=== PATIENT | female | born 1990 | race Caucasian/White ===

== ENCOUNTER 2016-05-27 02:15 | Inpatient (IN) | payer OTHER ==
[2016-05-27] MEDS: DEXTROSE 5%-LACTATED RINGERS 1,000 ML IV SCH ×2 (03:30→08:34)
[2016-05-27 04:39] LABS: BASOPHIL 0.8 % (0-2.0); EOSINOPHIL 0.4 % (0-4.5); MCH 29.6 pg (25.7-33.7); MCHC 34.6 g/dl (32.0-36.0); MEAN CELL VOLUME 85.8 fl (80-96); MEAN PLT VOLUME 9.1 fl (7.5-11.1); NEUTROPHILS 72.1 % (42.8-82.8); PLATELET COUNT 261 K/MM3 (134-434); RDW 13.2 % (11.6-15.6); WHITE BLOOD COUNT 10.3 K/mm3 (4.0-10.0)
[2016-05-27 04:58] LABS: INR 0.97 (0.82-1.09); PROTHROMBIN TIME (PATIENT) 10.7 SEC (9.98-11.88)
[2016-05-27 05:00] VITALS: BMI 37.3
[2016-05-27 05:01] LABS: ACTIVATED PTT 27.8 SECONDS (26.9-34.4)
[2016-05-27 05:04] LABS: CALCIUM 8.5 mg/dL (8.5-10.1); CREATININE 0.4 mg/dL (0.55-1.02)
[2016-05-27 05:22] LABS: HIV 1 & 2 AB NEGATIVE; HIV 1 AGp24 NEGATIVE
[2016-05-27] MEDS ORDERED: DINOPROSTONE 10 MG VAGINAL SUPPOSITORY VG ONE (05:26)
[2016-05-27] MEDS ORDERED: AMPICILLIN - 100 ML IVPB ONE (06:44)
--- NOTE | 2016-05-27 06:50 | HP ---
Past Medical History - Primary Care Physician PCP:: Chrystal Chapman - Admission Chief Complaint: Postdates History of Present Illness: 25 yo EDc 05/22/16 EGA 40.6 weeks with c/o of mucous and mild cramping no rom bleeding DIAMOND or pain pt admitted for postdates pt with Ho delivery at 35 weeks History Source: Patient - Past Medical History ...: 2 ...Para: 1 ...Term: 0 ...: 1 ...Spon : 0 ...Induced : 0 ...Multiple Gestation: 0 ...EDC by Sono: 05/22/15 Additional OB History: delivery at 35 weeks - Past Surgical History Past Surgical History: Yes: None Hx Myomectomy: No Hx Transabdominal Cerclage: No - Smoking History Smoking history: Never smoked Have you smoked in the past 12 months: No Aproximately how many cigarettes per day: 0 - Alcohol/Substance Use Hx Alcohol Use: No History of Substance Use: reports: None - Social History History of Recent Travel: No Home Medications - Allergies Allergies/Adverse Reactions: Allergies Allergy/AdvReac Type Severity Reaction Status Date / Time No Known Allergies Allergy Verified 05/27/16 03:46 - Home Medications Home Medications: Ambulatory Orders Vit/Iron Fumarate/FA [ Tablet] 1 each PO DAILY 01/03/16 Review of Systems - Review of Systems Constitutional: reports: No Symptoms Eyes: reports: No Symptoms HENT: reports: No Symptoms Neck: reports: No Symptoms Cardiovascular: reports: No Symptoms Respiratory: reports: No Symptoms Gastrointestinal: reports: No Symptoms Genitourinary: reports: No Symptoms Breasts: reports: No Symptoms Reported Musculoskeletal: reports: No Symptoms Integumentary: reports: No Symptoms Neurological: reports: No Symptoms Endocrine: reports: No Symptoms Hematology/Lymphatic: reports: No Symptoms Psychiatric: reports: No Symptoms Physical Exam - Maternity Vital Signs: Vital Signs Temperature 97.7 F 05/27/16 06:00 Pulse Rate 90 05/27/16 06:00 Respiratory Rate 20 05/27/16 06:00 Blood Pressure 126/78 05/27/16 06:00 O2 Sat by Pulse Oximetry (%) Constitutional: Yes: Well Nourished Neck: Yes: WNL Cardiovascular: Yes: WNL, Regular Rate and Rhythm Lungs: Clear to auscultation Breast(s): Yes: WNL - Abdominal Exam/OB Fundal Height: 41 Number of Fetuses: Single Contractions: No Monitor Mode: External Heart Rate (range): 140 Heart Rate Location: [facility] Category: I Accelerations: Non-Uniform Decelerations: None - Vaginal Exam/OB Vaginal Bleediing: No Speculum Exam: No Dilatation (cm): 3 cm Effacement (%): 80 Amniotic Membrane Status: Intact Presentation: Vertex/Position Station: -2 - Physical Exam Musculoskeletal: Yes: WNL Extremities: Yes: WNL Edema: No Integumentary: Yes: WNL Psychiatric: Yes: WNL, Alert, Oriented - Labs Lab Results: CBC, BMP 05/27/16 04:25 05/27/16 04:25 Hemorrhage Risk Assessment - Risk Factors Risk Score: 0 Risk Level: Low Risk Problem List - Problems (1) Post term over 40 weeks Code(s): O48.0 - POST-TERM Assessment/Plan iup at 40.5 weeks by usg admitted for induction of labor Hx of delivery at 35 weeks Cat 1 Plan cervidil then pitocin if needed
[2016-05-27] MEDS ORDERED: BUTORPHANOL TARTRATE 1 MG/ML VIAL IVPB ONE (08:00)
[2016-05-27] MEDS ORDERED: PROMETHAZINE HCL 25 MG/1 ML VIAL IVPB ONE (08:00)
[2016-05-27] MEDS ORDERED: ELECTROLYTE-148 SOLN 1,000 ML IV SCH (09:00)
[2016-05-27] MEDS ORDERED: FENTANYL/BUPIVACAINE/NS/PF - PCEA - 50 ML DISP.SYRIN EP SCH (09:40)
[2016-05-27] MEDS ORDERED: WITCH HAZEL 50% (TUCKS) 40 PAD/JAR PAD TP PRN (10:37)
[2016-05-27] MEDS ORDERED: IBUPROFEN 800 MG/8 ML IJ IVPB PRN (10:37)
[2016-05-27] MEDS ORDERED: BENZOCAINE 20% 57 GM BOTTLE TP PRN (10:37)
[2016-05-27] MEDS ORDERED: BENZOCAINE 28 GM HEMORRHOIDAL OINTMENT TP PRN (10:37)
[2016-05-27] MEDS ORDERED: METHYLERGONOVINE MALEATE 0.2 MG/1 ML AMP IM PRN (10:37)
--- NOTE | 2016-05-27 10:41 | OP ---
[id number] Distress. bradycardia Operation: Primary Section Findings: Live male normal tubes & ovaries Post-Operative Diagnosis: Same as Pre-op Surgeon: Chrystal Chapman Electromechanical Assembly Technician: Gopi Ward Anesthesia: General Estimated Blood Loss (mls): 600 Operative Report Dictated: Yes
[2016-05-27] MEDS ORDERED: ONDANSETRON 4 MG/2 ML VIAL IVPB PRN (10:56)
[2016-05-27] MEDS ORDERED: LACTATED RINGERS SOLUTION 1,000 ML IV SCH (11:00)
[2016-05-27 11:02] LABS: ARTERIAL BLOOD GAS pH 7.05 (7.35-7.45)
[2016-05-27 11:03] LABS: ARTERIAL BLD GAS O2 SATURATION 2.3 % (90-98.9); ARTERIAL BLOOD GAS BASE EXCESS -10.7 meq/l (-2-2); ARTERIAL BLOOD GAS HCO3 23.6 meq/L (22-26); ARTERIAL BLOOD GAS PO2 4.3 mmHg (80-100)
[2016-05-27 11:04] LABS: ART PUNCT SITE OTHER; LPM/O2% 21%; PT. ON O2? n
[2016-05-27 11:06] LABS: ARTERIAL BLD GAS O2 SATURATION 4.4 % (90-98.9); ARTERIAL BLOOD GAS BASE EXCESS -10.7 meq/l (-2-2); ARTERIAL BLOOD GAS HCO3 23.7 meq/L (22-26); ARTERIAL BLOOD GAS PO2 5.7 mmHg (80-100); ARTERIAL BLOOD GAS pH 7.05 (7.35-7.45)
[2016-05-27 11:07] LABS: ART PUNCT SITE OTHER; LPM/O2% 21%; PT. ON O2? n; TYPE OF O2 r/a
[2016-05-27 11:09] LABS: ARTERIAL BLOOD GAS pH 7.08 (7.35-7.45)
[2016-05-27 11:10] LABS: ART PUNCT SITE OTHER; ARTERIAL BLD GAS O2 SATURATION 5.3 % (90-98.9); ARTERIAL BLOOD GAS BASE EXCESS -9.1 meq/l (-2-2); ARTERIAL BLOOD GAS PO2 10.2 mmHg (80-100); LPM/O2% 21%; PT. ON O2? n; TYPE OF O2 r/a
[2016-05-27 11:12] LABS: ARTERIAL BLD GAS O2 SATURATION 5.4 % (90-98.9); ARTERIAL BLOOD GAS BASE EXCESS -9.2 meq/l (-2-2); ARTERIAL BLOOD GAS PO2 10.2 mmHg (80-100); ARTERIAL BLOOD GAS pH 7.08 (7.35-7.45)
[2016-05-27 11:13] LABS: ART PUNCT SITE OTHER; ARTERIAL BLOOD GAS HCO3 23.9 meq/L (22-26); LPM/O2% 21%; PT. ON O2? n; TYPE OF O2 r/a
[2016-05-27] MEDS: AMPICILLIN - 100 ML IVPB SCH ×3 (12:09→19:26)
--- NOTE | 2016-05-27 15:57 | SURG ---
Surgery Web Services Architect Note Web Services Architect: Gopi Ward PA-C Date of Service: 05/27/16 Diagnosis: Distress. bradycardia Procedure: Primary Section I was present for the entirety of the operative procedure. For further detail, please refer to operative report. Visit type - Case Type Case Type: Scheduled Admission - New patient This patient is new to me today: Yes Date on this admission: 05/27/16
--- NOTE | 2016-05-28 06:43 | PN ---
Post Progress Note - Subjective Subjective: 25 yo Para 2, status post primary , seen and evaluated. Doing well. Post Day: 1 Type of Delivery: Primary C/S Vital Signs: Vital Signs Temperature 98.6 F 05/28/16 02:00 Pulse Rate 88 05/28/16 02:00 Respiratory Rate 18 05/28/16 05:00 Blood Pressure 106/58 05/28/16 02:00 O2 Sat by Pulse Oximetry (%) 100 05/27/16 13:00 Breast Exam: Yes: Soft Uterus: Yes: Fundus Firm Incision: Yes: Dressing dry and intact Abdomen/GI: Yes: Abdomen soft Lochia: Yes: Rubra Lochia, amount: Small Extremities: Yes: Calves non-tender Perineum: Yes: Intact Activity: Other (Lying in bed) - Labs Labs: CBC WBC 10.3 K/mm3 (4.0-10.0) H 05/27/16 04:25 RBC 4.16 M/mm3 (3.60-5.2) 05/27/16 04:25 Hgb 12.3 GM/dL (10.7-15.3) 05/27/16 04:25 Hct 35.6 % (32.4-45.2) 05/27/16 04:25 MCV 85.8 fl (80-96) 05/27/16 04:25 MCHC 34.6 g/dl (32.0-36.0) 05/27/16 04:25 RDW 13.2 % (11.6-15.6) 05/27/16 04:25 Plt Count 261 K/MM3 (134-434) 05/27/16 04:25 MPV 9.1 fl (7.5-11.1) 05/27/16 04:25 Neutrophils % 72.1 % (42.8-82.8) 05/27/16 04:25 Lymphocytes % 21.5 % (8-40) 05/27/16 04:25 Monocytes % 5.2 % (3.8-10.2) 05/27/16 04:25 Eosinophils % 0.4 % (0-4.5) 05/27/16 04:25 Basophils % 0.8 % (0-2.0) 05/27/16 04:25 Problem List - Problems (1) Status post primary low transverse section Code(s): Z98.89 - OTHER SPECIFIED POSTPROCEDURAL STATES * DO NOT USE * Assessment/Plan Status post primary Ambulation Anesthesia PRN pain Continue Post op care
--- NOTE | 2016-05-28 07:55 | PN ---
Progress Note (short form) - Note Progress Note: Post op day#1.S/P C section under spinal anesthesia with duramorph uneventful.Patient stable and does not c/o pain.No any anesthesia related problem.Patient DC from the anesthesia care.
[2016-05-28 08:50] LABS: BASOPHIL 1.3 % (0-2.0); EOSINOPHIL 0.1 % (0-4.5); MCH 29.2 pg (25.7-33.7); MCHC 33.8 g/dl (32.0-36.0); MEAN CELL VOLUME 86.5 fl (80-96); MEAN PLT VOLUME 8.5 fl (7.5-11.1); NEUTROPHILS 80.3 % (42.8-82.8); PLATELET COUNT 225 K/MM3 (134-434); RDW 13.1 % (11.6-15.6); WHITE BLOOD COUNT 12.2 K/mm3 (4.0-10.0)
[2016-05-28] MEDS: IBUPROFEN 600 MG TABLET (FP) PO PRN ×3 (10:27→21:06)
[2016-05-28] MEDS: SIMETHICONE 80 MG TAB.CHEW (FP) PO PRN ×3 (10:27→21:05)
[2016-05-28] MEDS ORDERED: BISACODYL 10 MG SUPP.RECT RC PRN (10:38)
[2016-05-28] MEDS: PRENATAL VITAMINS W/ FOLIC ACID TABLET (FP) PO SCH (12:11)
[2016-05-28] MEDS ORDERED: OXYCODONE/APAP 5/325MG COMBO TABLET PO PRN (12:18)
[2016-05-28] MEDS ORDERED: oxyCODONE HCL 5 MG TABLET PO PRN (12:25)
[2016-05-28] MEDS ORDERED: ACETAMINOPHEN 325 MG TABLET (FP) PO PRN (12:25)
[2016-05-28] MEDS: ACETAMINOPHEN 325 MG TABLET (FP) PO PRN ×2 (14:28→21:05)
[2016-05-29] MEDS: oxyCODONE HCL 5 MG TABLET PO PRN ×3 (00:13→11:55)
[2016-05-29] MEDS: SIMETHICONE 80 MG TAB.CHEW (FP) PO PRN ×4 (00:13→18:28)
[2016-05-29] MEDS: ACETAMINOPHEN 325 MG TABLET (FP) PO PRN ×4 (00:14→18:26)
[2016-05-29] MEDS: PRENATAL VITAMINS W/ FOLIC ACID TABLET (FP) PO SCH (09:59)
[2016-05-29] MEDS: IBUPROFEN 600 MG TABLET (FP) PO PRN (18:28)
[2016-05-30] MEDS: SIMETHICONE 80 MG TAB.CHEW (FP) PO PRN (00:42)
[2016-05-30] MEDS: IBUPROFEN 600 MG TABLET (FP) PO PRN (00:42)
[2016-05-30] MEDS: ACETAMINOPHEN 325 MG TABLET (FP) PO PRN (00:43)
--- NOTE | 2016-05-30 06:56 | DS ---
Physical Exam-HAIR DESIGNER Vital Signs: Vital Signs Temperature 98.8 F 05/29/16 22:00 Pulse Rate 117 H 05/29/16 22:00 Respiratory Rate 18 05/29/16 22:00 Blood Pressure 128/68 05/29/16 22:00 O2 Sat by Pulse Oximetry (%) 100 05/27/16 13:00 Constitutional: Yes: Well Nourished, No Distress, Calm Eyes: Yes: Conjunctiva Clear, EOM Intact HENT: Yes: Atraumatic, Normocephalic Neck: Yes: Supple, Trachea Midline Cardiovascular: Yes: Regular Rate and Rhythm Respiratory: Yes: Regular, CTA Bilaterally Gastrointestinal: Yes: Normal Bowel Sounds, Soft ....Post : Yes: Uterus firm, Uterus non-tender Breast(s): Yes: WNL Musculoskeletal: Yes: WNL Wound/Incision: Yes: Clean/Dry, Well Approximated Neurological: Yes: Alert, Oriented Psychiatric: Yes: Alert, Oriented Labs: CBC, BMP 05/28/16 08:00 05/27/16 04:25 Delivery - Delivery Type of Anesthesia: Epidural, General Episiotomy/Laceration: None EBL (cc): 600 Delivery, Single - Stages of Labor Date 1st Stage Initiatied: 05/27/16 Date of Delivery: 05/27/16 Time of Delivery: 10:07 Time Placenta Delivered: 10:08 - Condition of Infant Lodge Officer/Commissions Coordinator Present: Yes Name: Keily Franco Infant Gender: Male Weight: 7 lb 9 oz Position: OT Total Hours ROM (Hrs/Mins): 0/16 - 1 Minute Total Score: 3 5 Minutes Total Score: 7 - [place] Feeding Plan Initial Plan: Elected not to breastfeed exclusively throughout hospitalization Discharge Summary Reason For Visit: LABOR ADMIT Current Active Problems Post term over 40 weeks (Acute) Status post primary low transverse section (Acute) Procedures: Principal: Primary section Hospital Course: Patient admitted for induction of labor on 05/27, underwent emergency section (see operative report) for bradycardia. Patient then underwent normal post recovery and is discharged home in stable condition on post op day 3. Condition: Good - Instructions Diet, Activity, Other Instructions: Physical activity Resume your normal everyday activity as tolerated no heavy lifting or exercise until seen by your surgeon. You may walk unlimited jevon of and climb stairs. You may resume driving the car when you feel safe and comfortable behind the wheel. No sexual activity as instructed. Wound care If you have a bandage, leave it on, and keep dry for 48-72 hours. After that time discard the outer bandage. If they are tapes on the skin under the out of bandage leave them in place. They will peel off in the next 7 to 10 days. Do Not Peel them off. You may shower the day after surgery. If there are tapes present on the skin, you may shower over them. Diet There are no dietary restrictions. Eat healthy, high-fiber foods. Drink 6 to 8 glasses of liquid each day. This will assist in keeping your bowels are regular. Pain management You may take Tylenol or acetaminophen or Ibuprofen (for example, Motrin, Advil etc.) from my pain prescription medication is ordered should be taken as prescribed for moderate to severe pain. Call MD for any of the following: Severe pain not relieved by medication Fever of 101 or higher Excessive bleeding or drainage on dressing Inability to urinate Referrals: Chrystal Chapman MD [Staff Physician] - Disposition: HOME - Home Medications Comprehensive Discharge Medication List: Ambulatory Orders Vit/Iron Fumarate/FA [ Tablet] 1 each PO DAILY 01/03/16 Oxycodone HCl/Acetaminophen [Percocet 5-325 mg Tablet -] 1 tab PO Q4H #20 tablet MDD 6 05/29/16
[2016-05-30 07:07] LABS: BASOPHIL 0.8 % (0-2.0); EOSINOPHIL 1.6 % (0-4.5); MCH 29.8 pg (25.7-33.7); MCHC 34.6 g/dl (32.0-36.0); MEAN PLT VOLUME 8.3 fl (7.5-11.1); NEUTROPHILS 61.6 % (42.8-82.8); PLATELET COUNT 237 K/MM3 (134-434); RDW 13.2 % (11.6-15.6); WHITE BLOOD COUNT 7.6 K/mm3 (4.0-10.0)
[2016-05-30 09:49] VITALS: BP 136/74; PULSE 100; TEMP 98
[2016-05-30] MEDS: PRENATAL VITAMINS W/ FOLIC ACID TABLET (FP) PO SCH (10:08)
--- NOTE | 2016-05-30 14:42 | PATH ---
Surgical Pathology Report Patient Name: KEISHA LUNA Med. Rec. #: [id number] /Age/Gender: 1990 (Age: 25) / F Account: [id number] Location: [facility] OBS/CURRICULUM DESIGNER Taken: 05/27/2016 Received: 05/28/2016 Reported: 05/30/2016 Physicians: Chrystal Chapman M.D. Specimen(s) Received PLACENTA Clinical History , 40.5 weeks, distress/bradycardia Primary c/section Final Diagnosis PLACENTA, DELIVERY: FOCALLY DISRUPTED, SMALL (<400 GM), THIRD TRIMESTER PLACENTA WITH MODERATE INCREASE IN PREVILLOUS, PERIVILLOUS, AND PRECHORIONIC FIBRIN DEPOSITION, DYSTROPHIC CALCIFICATIONS, THREE VESSEL UMBILICAL CORD, AND PLACENTAL MEMBRANES WITH MECONIUM HISTIOCYTOSIS, FOCAL ACUTE CHORIOAMNIONITIS AND AMNION HYPERPLASIA. Electronically Signed Kendall Ludwig M.D. Gross Description The specimen is received fresh, labeled "placenta" and is a 339 gram, 14.0 x 13.5 x 2.0 cm placenta with attached membranes and a small portion of attached umbilical cord. The attached membranes are manuel-green, meconium stained, translucent with focal opacities and insert marginally. The umbilical cord measures 2 cm. in length and averages 1.2 cm in diameter. The cord inserts eccentrically, 2.5 cm to the nearest margin. No true knots or strictures are identified. Cut surface of the umbilical cord reveals 3 vessels. The surface is spence-blue with fibrin deposition and appropriate caliber vessels. The maternal surface is red-brown and intact. Sectioning reveals red-brown, spongy parenchyma. No focal lesions are identified. Optimization Analyst sections are submitted in three cassettes as follows: 1- membrane rolls and umbilical cord; 2-3- full thickness sections of placenta. /05/29/2016 saudi05/29/2016
--- NOTE | 2016-06-02 14:20 | OP ---
DATE OF OPERATION: 05/27/2016 PREOPERATIVE DIAGNOSIS: distress, bradycardia. OPERATION: Primary low-transverse section. POSTOPERATIVE DIAGNOSIS: distress, bradycardia; live male ; normal tubes and ovaries. SURGEON: Chrystal Chapman MD ANESTHESIA: General. ANESTHESIOLOGIST: Jennie Villarreal MD PROCEDURE: The patient was taken to the operating room, placed in supine position, prepped and draped in the usual sterile fashion. After general anesthesia had been given, a Pfannenstiel skin incision was made with a scalpel. Cautery was then used to go through layers of abdominal wall to level of the fascia. Fascia was cut in the midline and cautery was then used to open the fascia in smiling fashion. Kochers were then used to bluntly and sharply dissect the rectus muscle with the fascia. Muscles split in the midline and peritoneal cavity was then entered and carried upward and downward. Bladder retractor was then placed. Vesicouterine reflection was then entered. Bladder was bluntly dissected out of the operative field. Scalpel was then used to make a low transverse uterine incision. The incision was carried up with using bandage scissors. A live male was delivered in OT position. Nose and mouth suction performed. Shoulders were delivered without difficulty. Cord was clamped and cut, cord blood obtained. Again, a live male was delivered in OT position and handed to trading manager. Placenta was manually extracted from the uterus. Uterus exteriorized and cleaned with clean lap pads. Uterine incision then closed using 0 Biosyn suture, 1st layer continuous interlocking, 2nd layer imbricating the 1st layer. Cord blood and cord blood sampling was then obtained. Hemostasis was achieved after imbricating stitch on the uterus. Uterus interiorized. Note tubes were noted to be normal and the ovaries normal. Abdominal sweep done. Peritoneal cavity closed using 0 Biosyn suture. Fascia was then closed using 0 Vicryl suture in 2 parts. Skin was then closed using 3-0 Vicryl in subcuticular fashion. Wound was washed and dressed. Patient tolerated procedure well. Estimated blood loss 600 mL. CHRYSTAL CHAPMAN M.D. [id number]
== END 2016-05-30 12:30 | disposition home or self-care (01) | DRG 540 ==
LOC: JDEL 02:15 → JLDR 03:10 → J3W 13:25
PROVIDERS: ADMIT Obstetrics & Gynecology; ATTEND Obstetrics & Gynecology
PROC: 10D00Z1 Extraction of Products of Conception, Low, Open Approach (ICD-10-PCS; principal; 2016-05-27)
DX: O48.0 Post-term pregnancy (principal); O77.8 Labor and delivery complicated by other evidence of fetal stress; O77.0 Labor and delivery complicated by meconium in amniotic fluid; Z3A.40 40 weeks gestation of pregnancy; Z37.0 Single live birth
CPT/HCPCS: 36415; 36600; 80048; 82803; 85025; 85610; 85730; 86593; 86850; 86900; 86901; 87389; 88307-TC

== ENCOUNTER 2018-07-10 16:01 | Emergency (ER) | payer OTHER ==
[2018-07-10 16:10] VITALS: BP 134/81; PULSE 97; TEMP 98.5; BMI 36.0
--- NOTE | 2018-07-10 16:53 | PDOC ---
History of Present Illness - General Chief Complaint: Pain Stated Complaint: ABD PAIN Time Seen by Provider: 07/10/18 16:25 History Source: Patient - History of Present Illness Timing/Duration: reports: constant Past History - Past Medical History Allergies/Adverse Reactions: Allergies Allergy/AdvReac Type Severity Reaction Status Date / Time No Known Allergies Allergy Verified 07/10/18 16:07 Home Medications: Ambulatory Orders Vit/Iron Fum/Folic AC [ Tablet] 1 each PO DAILY 01/03/16 Asthma: No Cancer: No Cardiac Disorders: No COPD: No CHF: No Diabetes: No HTN: No Seizures: No Thyroid Disease: No - Surgical History Abdominal Surgery: No - Reproductive History Is Patient Now?: (UNK) (#): 2 Para: 2 Cervical CA: No Dysfunctional Uterine Bleeding: No Ectopic : No Endometrial CA: No Polycystic Ovaries: No Therapeutic (s) & number: No Tubal Ligation: No - Immunization History Immunization Up to Date: Yes - Suicide/Smoking/Psychosocial Hx Smoking Status: No Smoking History: Never smoked Have you smoked in the past 12 months: No Number of Cigarettes Smoked Daily: 0 Hx Alcohol Use: No Drug/Substance Use Hx: No Substance Use Type: None Hx Substance Use Treatment: No Review of Systems - Review of Systems Constitutional: No: Chills, Fever ABD/GI: Yes: Abdominal cramping. No: Nausea, Vomiting : No: Dysuria, Flank Pain *Physical Exam - Vital Signs Last Vital Signs Temp Pulse Resp BP Pulse Ox 98.5 F 97 H 17 134/81 98 07/10/18 16:07 07/10/18 16:07 07/10/18 16:07 07/10/18 16:07 07/10/18 16:07 - Physical Exam General Appearance: Yes: Appropriately Dressed. No: Apparent Distress Respiratory/Chest: negative: Respiratory Distress Gastrointestinal/Abdominal: positive: Normal Bowel Sounds, Soft. negative: Tender, Distended, Guarding, Rebound Musculoskeletal: negative: CVA Tenderness Integumentary: positive: Dry, Warm Neurologic: positive: Fully Oriented, Alert, Normal Mood/Affect Medical Decision Making - Medical Decision Making 07/10/18 16:52 27 yo F, , here with intermittent pelvic pain x 1 week which has since resolved. Now feels mostly fatigued and concerned that she may be as her period is 6 days late. Admits that test at home was negative but wants a preg test here. No dysuria, vag discharge, nausea, vomiting, fever or chills See exam R/o Exam unremarkable -upreg 07/10/18 18:23 test neg. Stable for dc w/ early intervention specialist f/u *DC/Admit/Observation/Transfer Diagnosis at time of Disposition: Pelvic pain - Discharge Dispostion Disposition: HOME Condition at time of disposition: Good - Referrals Referrals: Artemio Leblanc MD [Primary Care Provider] - - Patient Instructions Additional Instructions: Your test is negative here Please follow up with your MILK PICKUP DRIVER for irregular period Return to ED as needed - Post Discharge Activity
--- NOTE | 2018-07-10 17:26 | PDOC ---
*Physical Exam - Vital Signs Last Vital Signs Temp Pulse Resp BP Pulse Ox 98.5 F 97 H 17 134/81 98 07/10/18 16:07 07/10/18 16:07 07/10/18 16:07 07/10/18 16:07 07/10/18 16:07 Medical Decision Making - Medical Decision Making 07/10/18 17:26 27 yo F presenting with abdominal pain and dizziness, concerned about Pt seen by Midlevel Provider under my direct supervision Ancillary studies reviewed I agree with plan as outlined by Midlevel Provider *DC/Admit/Observation/Transfer Diagnosis at time of Disposition: Pelvic pain - Discharge Dispostion Disposition: HOME Condition at time of disposition: Good - Referrals Referrals: Artemio Leblanc MD [Primary Care Provider] - - Patient Instructions Additional Instructions: Your test is negative here Please follow up with your DRAW FRAME OPERATOR for irregular period Return to ED as needed - Post Discharge Activity
[2018-07-10 18:32] LABS: PH,URINE 6.5 (5.0-8.0); URINE APPEARANCE CLEAR; URINE BILIRUBIN NEGATIVE (NEGATIVE); URINE COLOR YELLOW; URINE GLUCOSE (UA) NEGATIVE (NEGATIVE); URINE KETONE NEGATIVE (NEGATIVE); URINE LEUK ESTERASE NEGATIVE (NEGATIVE); URINE NITRITE NEGATIVE (NEGATIVE); URINE PROTEIN NEGATIVE (NEGATIVE)
== END 2018-07-10 18:25 | disposition home or self-care (01) ==
LOC: JER 16:01
DX: R10.2 Pelvic and perineal pain (principal)
CPT/HCPCS: 81003; 84703; 99283-25

== ENCOUNTER 2020-02-16 22:06 | Emergency (ER) | payer OTHER ==
[2020-02-16 22:13] VITALS: BP 148/106; PULSE 110; TEMP 99.3; BMI 39.9
[2020-02-16 22:45] LABS: BASO % 1.4 % (0-2.0); EOS % 0.6 % (0-4.5); HEMATOCRIT 41.2 % (32.4-45.2); MCH 29.4 pg (25.7-33.7); MCHC 34.1 g/dl (32.0-36.0); MEAN CELL VOLUME 86.4 fl (80-96); MEAN PLT VOLUME 8.5 fl (7.5-11.1); MONO % 5.6 % (3.8-10.2); NEUT % 64.4 % (42.8-82.8); PLATELET COUNT 362 K/MM3 (134-434); RBC 4.76 M/mm3 (3.60-5.2); RDW 12.4 % (11.6-15.6); WHITE BLOOD COUNT 8.9 K/mm3 (4.0-10.8)
[2020-02-16 22:54] LABS: EPITHELIAL CELLS FEW /hpf
[2020-02-16 22:59] LABS: BILIRUBIN,TOTAL 0.6 mg/dl (0.2-1); CREATININE 0.5 mg/dl (0.55-1.3); POTASSIUM 3.9 mmol/L (3.5-5.1); TOT PROT 7.3 g/dl (6.4-8.2)
== END 2020-02-17 01:17 | disposition home or self-care (01) ==
LOC: FER 22:06
DX: O20.0 Threatened abortion (principal)
CPT/HCPCS: 36415; 76817-TC; 80053; 81003; 81015; 84702; 85025; 86850; 86900; 86901; 99284-25

== ENCOUNTER 2020-02-19 11:40 | Emergency (ER) | payer OTHER ==
[2020-02-19 11:51] VITALS: BP 148/99; PULSE 99; TEMP 99; BMI 38.2
== END 2020-02-19 14:20 | disposition home or self-care (01) ==
LOC: FER 11:40
DX: O20.8 Other hemorrhage in early pregnancy (principal); O03.9 Complete or unspecified spontaneous abortion without complication
CPT/HCPCS: 36415; 76817-TC; 84702; 99284-25

== ENCOUNTER 2020-07-16 06:03 | Emergency (ER) | payer OTHER ==
[2020-07-16 06:11] VITALS: TEMP 99.6; BMI 38.5
[2020-07-16 08:42] LABS: BASO % 1.6 % (0-2.0); EOS % 0.1 % (0-4.5); HEMATOCRIT 36.8 % (32.4-45.2); HEMOGLOBIN 12.1 GM/dl (10.7-15.3); LYMPH % 27.8 % (8-40); MCHC 32.9 g/dl (32.0-36.0); MEAN CELL VOLUME 85.1 fl (80-96); MEAN PLT VOLUME 9.3 fl (7.5-11.1); MONO % 5.2 % (3.8-10.2); NEUT % 65.3 % (42.8-82.8); PLATELET COUNT 247 K/MM3 (134-434); RBC 4.33 M/mm3 (3.60-5.2); WHITE BLOOD COUNT 6.3 K/mm3 (4.0-10.8)
[2020-07-16 08:55] LABS: ALBUMIN 2.7 g/dl (3.4-5.0); BILIRUBIN,TOTAL 0.4 mg/dl (0.2-1); CALCIUM 8.1 mg/dl (8.5-10); CREATININE 0.5 mg/dl (0.55-1.3); TOT PROT 6.2 g/dl (6.4-8.2)
[2020-07-16 09:11] VITALS: BP 102/59; PULSE 102
== END 2020-07-16 11:17 | disposition home or self-care (01) ==
LOC: FER 06:03
DX: R07.89 Other chest pain (principal)
CPT/HCPCS: 36415; 80053; 82550; 84484; 85025; 85379; 93005; 99283-25

== ENCOUNTER 2020-12-11 05:45 | Inpatient (IN) | payer OTHER ==
[2020-12-11] MEDS ORDERED: BUTORPHANOL TARTRATE 1 MG/ML VIAL IVPB PRN ×2 (06:39)
[2020-12-11] MEDS ORDERED: PROMETHAZINE HCL 25 MG/1 ML VIAL IVPUSH ONE (06:39)
[2020-12-11] MEDS ORDERED: ELECTROLYTE-148 SOLN 1,000 ML IV SCH (06:45)
[2020-12-11 06:47] VITALS: BMI 39.6
[2020-12-11] MEDS ORDERED: BUTORPHANOL TARTRATE 2 MG/ML VIAL ONE (07:30)
[2020-12-11] MEDS ORDERED: PROMETHAZINE HCL 25 MG/1 ML VIAL ONE (07:30)
[2020-12-11 07:52] LABS: BASO % 1.1 % (0-2.0); EOS % 0.4 % (0-4.5); HEMATOCRIT 32.6 % (32.4-45.2); LYMPH % 27.9 % (8-40); MCH 26.2 pg (25.7-33.7); MCHC 33.9 g/dl (32.0-36.0); MEAN CELL VOLUME 77.4 fl (80-96); MEAN PLT VOLUME 10.2 fl (7.5-11.1); MONO % 6.5 % (3.8-10.2); NEUT % 64.1 % (42.8-82.8); PLATELET COUNT 281 10^3/uL (134-434); RBC 4.21 M/mm3 (3.60-5.2); RDW 14.1 % (11.6-15.6); WHITE BLOOD COUNT 8.1 K/mm3 (4.0-10.0)
[2020-12-11 07:57] LABS: INR 0.89 (0.83-1.09)
[2020-12-11 08:00] LABS: ACTIVATED PTT 23.7 SECONDS (25.2-36.5)
[2020-12-11 08:07] LABS: CALCIUM 8.5 mg/dL (8.5-10.1)
[2020-12-11 08:08] LABS: ALBUMIN 2.5 g/dl (3.4-5.0); BLOOD UREA NITROGEN 8.1 mg/dL (7-18)
[2020-12-11 08:11] LABS: CREATININE 0.4 mg/dL (0.55-1.3)
[2020-12-11 08:13] LABS: BILIRUBIN,TOTAL 0.5 mg/dL (0.2-1); TOT PROT 6.6 g/dl (6.4-8.2)
[2020-12-11] MEDS ORDERED: FENTANYL/BUPIVACAINE/NS/PF - PCEA - 50 ML DISP.SYRIN EP ONE (08:31)
[2020-12-11] MEDS ORDERED: PCA PUMP NR ONE (08:31)
[2020-12-11] MEDS ORDERED: BUPIVACAINE HCL/PF 0.25% (2.5MG/ML) 10 ML VIAL ONE (08:38)
[2020-12-11] MEDS ORDERED: PHENYLEPHRINE HCL 10 MG/1 ML SINGLE DOSE VIAL ONE ×2 (09:05→13:11)
[2020-12-11] MEDS ORDERED: ePHEDrine SULFATE 50 MG/1 ML AMPULE ONE ×3 (09:05→13:12)
[2020-12-11] MEDS ORDERED: morphine SULFATE/PF 0.5 MG/ML (2cc Syringe - QUVA) ONE ×2 (09:29→13:31)
[2020-12-11] MEDS ORDERED: ONDANSETRON 4 MG/2 ML VIAL ONE ×2 (09:30→13:15)
[2020-12-11] MEDS ORDERED: NALOXONE HCL 0.4 MG/ML VIAL IVPUSH PRN (09:40)
[2020-12-11] MEDS ORDERED: FENTANYL/BUPIVACAINE/NS/PF - PCEA - 50 ML DISP.SYRIN EP SCH (09:45)
[2020-12-11 10:06] LABS: SYPHILIS W/ RPR CONF NON-REACTIVE (NONREACTIVE)
[2020-12-11 10:34] LABS: HIV INTERPRETATION NEGATIVE (NEGATIVE)
[2020-12-11] MEDS ORDERED: ceFAZolin SODIUM 1 GM VIAL ONE ×2 (13:09)
[2020-12-11] MEDS ORDERED: METHYLERGONOVINE MALEATE 0.2 MG/1 ML AMP IM PRN (13:10)
[2020-12-11] MEDS ORDERED: SENNOSIDES/DOCUSATE COMBO (SENNA PLUS) TABLET (UD) PO PRN (13:10)
[2020-12-11] MEDS ORDERED: ACETAMINOPHEN 325 MG TABLET (FP) PO PRN (13:10)
[2020-12-11] MEDS ORDERED: IBUPROFEN 800 MG/8 ML IJ IVPB PRN (13:10)
[2020-12-11] MEDS ORDERED: OXYTOCIN 20 UNITS in 0.9% NS 20 UNIT/1,000 ML INFUS.BAG IV SCH (13:15)
[2020-12-11] MEDS ORDERED: OXYTOCIN 10 UNIT/ML 10ML MDV ONE (13:24)
[2020-12-11] MEDS ORDERED: ONDANSETRON 4 MG/2 ML VIAL IVPUSH PRN (14:14)
[2020-12-11 14:15] LABS: CORD HCO3 23.1 mmHg (20-29); CORD PCO2 67.5 mmHg (30-78); CORD pH 7.153 (7.14-7.44)
[2020-12-11] MEDS ORDERED: morphine SULFATE/PF 0.5 MG/ML (2cc Syringe - QUVA) EP ONE (14:15)
[2020-12-11] MEDS ORDERED: LACTATED RINGERS SOLUTION 1,000 ML IV SCH (14:15)
[2020-12-11 14:20] LABS: CORD BASE EXCESS -4.2 mmol/L (0-2); CORD PCO2 55.7 mmHg (30-78); CORD pH 7.252 (7.14-7.44)
[2020-12-11] MEDS ORDERED: IBUPROFEN 800 MG/8 ML IJ IVPB ONE (16:14)
[2020-12-11] MEDS ORDERED: OXYTOCIN 20 UNITS in 0.9% NS 20 UNIT/1,000 ML INFUS.BAG IV ONE (16:17)
[2020-12-11] MEDS: FERROUS SO4 325 MG TABLET (FP) PO SCH (18:37)
[2020-12-12] MEDS: IBUPROFEN 600 MG TABLET (FP) PO PRN ×4 (02:22→14:26)
[2020-12-12 08:18] LABS: BASO % 0.4 % (0-2.0); EOS % 0.3 % (0-4.5); HEMATOCRIT 27.1 % (32.4-45.2); HEMOGLOBIN 9.1 GM/dL (10.7-15.3); LYMPH % 25.4 % (8-40); MCH 26.1 pg (25.7-33.7); MCHC 33.6 g/dl (32.0-36.0); MEAN CELL VOLUME 77.8 fl (80-96); MEAN PLT VOLUME 9.5 fl (7.5-11.1); MONO % 6.7 % (3.8-10.2); NEUT % 67.2 % (42.8-82.8); PLATELET COUNT 222 10^3/uL (134-434); RBC 3.48 M/mm3 (3.60-5.2); RDW 13.9 % (11.6-15.6)
[2020-12-12] MEDS: SIMETHICONE 80 MG TAB.CHEW (FP) PO PRN ×2 (10:21→14:26)
[2020-12-12] MEDS: PRENATAL VITAMINS W/ FOLIC ACID TABLET (FP) PO SCH (10:22)
[2020-12-12] MEDS: FERROUS SO4 325 MG TABLET (FP) PO SCH ×2 (10:22→17:48)
[2020-12-12] MEDS ORDERED: BISACODYL 10 MG SUPP.RECT RC PRN (13:10)
[2020-12-12] MEDS: oxyCODONE HCL 5 MG TABLET PO PRN (22:10)
[2020-12-13] MEDS: oxyCODONE HCL 5 MG TABLET PO PRN ×2 (03:05→07:06)
[2020-12-13] MEDS: SIMETHICONE 80 MG TAB.CHEW (FP) PO PRN ×3 (03:06→11:35)
[2020-12-13] MEDS: FERROUS SO4 325 MG TABLET (FP) PO SCH ×2 (09:40→17:24)
[2020-12-13] MEDS: PRENATAL VITAMINS W/ FOLIC ACID TABLET (FP) PO SCH (09:40)
[2020-12-13] MEDS: IBUPROFEN 600 MG TABLET (FP) PO PRN ×2 (11:35→21:19)
[2020-12-13] MEDS ORDERED: oxyCODONE HCL 5 MG TABLET PO PRN (13:10)
[2020-12-14] MEDS: IBUPROFEN 600 MG TABLET (FP) PO PRN ×2 (02:24→08:48)
[2020-12-14] MEDS: FERROUS SO4 325 MG TABLET (FP) PO SCH (08:47)
[2020-12-14] MEDS: PRENATAL VITAMINS W/ FOLIC ACID TABLET (FP) PO SCH (09:28)
[2020-12-14 09:54] LABS: EOS % 1.6 % (0-4.5); HEMATOCRIT 27.2 % (32.4-45.2); HEMOGLOBIN 9.2 GM/dL (10.7-15.3); LYMPH % 32.6 % (8-40); MCH 26.4 pg (25.7-33.7); MEAN CELL VOLUME 77.8 fl (80-96); MEAN PLT VOLUME 8.9 fl (7.5-11.1); MONO % 5.8 % (3.8-10.2); PLATELET COUNT 275 10^3/uL (134-434); RDW 14.3 % (11.6-15.6); WHITE BLOOD COUNT 6.3 K/mm3 (4.0-10.0)
[2020-12-14 12:39] VITALS: BP 126/68; PULSE 92; TEMP 97.8
== END 2020-12-14 14:17 | disposition home or self-care (01) | DRG 540 ==
LOC: JLDR 05:45 → J3W 17:05
PROVIDERS: ADMIT Obstetrics & Gynecology; ATTEND Obstetrics & Gynecology
PROC: 10D00Z1 Extraction of Products of Conception, Low, Open Approach (ICD-10-PCS; principal; 2020-12-11)
DX: O34.219 Maternal care for unspecified type scar from previous cesarean delivery (principal); O71.1 Rupture of uterus during labor; O66.41 Failed attempted vaginal birth after previous cesarean delivery; O42.92 Full-term premature rupture of membranes, unspecified as to length of time between rupture and onset of labor; R00.2 Palpitations; O99.214 Obesity complicating childbirth; E66.9 Obesity, unspecified; Z3A.38 38 weeks gestation of pregnancy; Z37.0 Single live birth
CPT/HCPCS: 36415; 36600; 80053; 82803; 85025; 85610; 85730; 86762; 86780; 86850; 86900; 86901; 87340; 87389; 88307-TC; 93005; 93010; C9803; U0003; U0005

== ENCOUNTER 2021-07-20 16:34 | Emergency (ER) | payer OTHER ==
[2021-07-20 16:52] VITALS: BP 135/83; PULSE 104; TEMP 98.1; BMI 39.9
[2021-07-20 18:30] LABS: BASO % 0.6 % (0-2.0); HEMATOCRIT 36.5 % (32.4-45.2); HEMOGLOBIN 12.5 GM/dL (10.7-15.3); LYMPH % 27.2 % (8-40); MCH 27.1 pg (25.7-33.7); MCHC 34.1 g/dl (32.0-36.0); MEAN CELL VOLUME 79.3 fl (80-96); MONO % 6.7 % (3.8-10.2); NEUT % 64.5 % (42.8-82.8); PLATELET COUNT 302 10^3/uL (134-434); RBC 4.61 M/mm3 (3.60-5.2); RDW 15.6 % (11.6-15.6); WHITE BLOOD COUNT 7.2 K/mm3 (4.0-10.0)
[2021-07-20 18:32] LABS: HCG,QUALITATIVE URINE Positive; URINE APPEARANCE CLEAR; URINE BILIRUBIN NEGATIVE (NEGATIVE); URINE COLOR YELLOW; URINE GLUCOSE (UA) NEGATIVE (NEGATIVE); URINE KETONE NEGATIVE (NEGATIVE); URINE LEUK ESTERASE NEGATIVE (NEGATIVE); URINE NITRITE NEGATIVE (NEGATIVE); URINE PROTEIN TRACE (NEGATIVE)
[2021-07-20 18:48] LABS: CALCIUM 8.8 mg/dL (8.5-10.1)
[2021-07-20 18:51] LABS: CREATININE 0.5 mg/dL (0.55-1.3)
[2021-07-20 18:53] LABS: BILIRUBIN,TOTAL 0.3 mg/dL (0.2-1); TOT PROT 6.9 g/dl (6.4-8.2)
[2021-07-20] MEDS ORDERED: LACTATED RINGERS SOLUTION 1,000 ML/1,000 ML INFUS.BAG IV STA (20:41)
== END 2021-07-20 22:35 | disposition home or self-care (01) ==
LOC: JER 16:34 → JERFT 16:34
PROC: 3E0337Z Introduction of Electrolytic and Water Balance Substance into Peripheral Vein, Percutaneous Approach (ICD-10-PCS; principal; 2021-07-20)
DX: O26.891 Other specified pregnancy related conditions, first trimester (principal); R51.9 Headache, unspecified; Z3A.12 12 weeks gestation of pregnancy
CPT/HCPCS: 36415; 76817-TC; 80053; 81003; 84702; 84703; 85025; 86850; 86900; 86901; 87086; 87491; 87591; 99284-25

== ENCOUNTER 2022-01-04 01:38 | Emergency (ER) | payer OTHER ==
[2022-01-04 01:54] VITALS: BP 0/0; RESP 17; BMI 43.2
== END 2022-01-04 02:13 | disposition home or self-care (01) ==
LOC: FER 01:38
DX: R10.9 Unspecified abdominal pain (principal)
CPT/HCPCS: 99281-25

== ENCOUNTER 2022-08-13 00:57 | Emergency (ER) | payer OTHER ==
[2022-08-13] MEDS ORDERED: KETOROLAC TROMETHAMINE 30 MG/1 ML VIAL IVPUSH ONE (01:02)
[2022-08-13 01:13] VITALS: BP 152/84; PULSE 85; RESP 17; TEMP 98.3; BMI 43.2
[2022-08-13] MEDS ORDERED: KETOROLAC TROMETHAMINE 30 MG/1 ML VIAL ONE (01:14)
[2022-08-13] MEDS ORDERED: SODIUM CHLORIDE 1,000 ML IV SCH (01:15)
[2022-08-13 02:00] LABS: HEMATOCRIT 35.9 % (32.4-45.2); HEMOGLOBIN 12.5 GM/dL (10.7-15.3); MCH 28.5 pg (25.7-33.7); MCHC 34.9 g/dl (32.0-36.0); MEAN CELL VOLUME 81.5 fl (80-96); MEAN PLT VOLUME 8.7 fl (7.5-11.1); PLATELET COUNT 293 10^3/uL (134-434); RBC 4.41 M/mm3 (3.60-5.2); RDW 14.4 % (11.6-15.6); WHITE BLOOD COUNT 7.2 K/mm3 (4.0-10.0)
[2022-08-13 02:20] LABS: POTASSIUM 4.1 mmol/L (3.5-5.1)
[2022-08-13 02:23] LABS: ALBUMIN 3.5 g/dl (3.4-5.0); CALCIUM 8.9 mg/dL (8.5-10.1)
[2022-08-13 02:26] LABS: CREATININE 0.6 mg/dL (0.55-1.3)
[2022-08-13 02:28] LABS: BILIRUBIN,TOTAL 0.3 mg/dL (0.2-1); TOT PROT 7.3 g/dl (6.4-8.2)
[2022-08-13 04:31] LABS: URINE APPEARANCE CLOUDY; URINE BILIRUBIN NEGATIVE (NEGATIVE); URINE COLOR YELLOW; URINE GLUCOSE (UA) NEGATIVE (NEGATIVE); URINE KETONE TRACE (NEGATIVE); URINE LEUK ESTERASE NEGATIVE (NEGATIVE); URINE NITRITE NEGATIVE (NEGATIVE); URINE PROTEIN TRACE (NEGATIVE)
== END 2022-08-13 04:00 | disposition left against medical advice (07) ==
LOC: FER 00:57
PROC: 3E0333Z Introduction of Anti-inflammatory into Peripheral Vein, Percutaneous Approach (ICD-10-PCS; principal; 2022-08-13)
DX: O26.612 Liver and biliary tract disorders in pregnancy, second trimester (principal); K81.0 Acute cholecystitis; Z3A.19 19 weeks gestation of pregnancy
CPT/HCPCS: 36415; 76705-TC; 80053; 81003; 81025; 83690; 85027; 99284-25

== ENCOUNTER 2022-10-08 01:00 | Emergency (ER) | payer OTHER ==
[2022-10-08 01:07] VITALS: BP 152/99; PULSE 114; RESP 17; TEMP 98.5; BMI 42.3
[2022-10-08] MEDS ORDERED: PHENAZOPYRIDINE HCL 100 MG TABLET (FP) PO ONE (01:22)
[2022-10-08] MEDS ORDERED: PHENAZOPYRIDINE HCL 100 MG TABLET (FP) ONE (01:23)
[2022-10-08] MEDS ORDERED: NITROFURANTOIN MACROCRYSTAL 50 MG CAPSULE (FP) ONE (01:23)
[2022-10-08] MEDS ORDERED: NITROFURANTOIN MACROCRYSTAL 50 MG CAPSULE (FP) PO SCH (01:30)
[2022-10-08 02:26] LABS: EPI CELLS 19 /uL (0-25.1); HYALINE CASTS 0 /uL (0-3.1); PH,URINE 6.5 (5.0-8.0); URINE APPEARANCE CLOUDY; URINE BACTERIA >9,000 /uL (0-1359); URINE BILIRUBIN NEGATIVE (NEGATIVE); URINE COLOR YELLOW; URINE GLUCOSE (UA) NEGATIVE (NEGATIVE); URINE KETONE TRACE (NEGATIVE); URINE LEUK ESTERASE 2+ (NEGATIVE); URINE NITRITE NEGATIVE (NEGATIVE); URINE PROTEIN 2+ (NEGATIVE); URINE RBC 733 /uL (0-23.9); URINE WBC 1504 /uL (0-25.8)
[2022-10-08 07:04] LABS: URINE CRYSTALS FEW /hpf
== END 2022-10-08 01:31 | disposition home or self-care (01) ==
LOC: FER 01:00
DX: O26.892 Other specified pregnancy related conditions, second trimester (principal); R30.0 Dysuria; Z3A.15 15 weeks gestation of pregnancy
CPT/HCPCS: 81003; 87086; 87186; 99283-25

== ENCOUNTER 2022-10-23 14:01 | Emergency (ER) | payer OTHER ==
[2022-10-23 14:15] VITALS: RESP 17; BMI 41.5
[2022-10-23] MEDS ORDERED: ACETAMINOPHEN 325 MG TABLET (FP) ONE (16:23)
[2022-10-23] MEDS ORDERED: ACETAMINOPHEN 325 MG TABLET (FP) PO ONE (16:23)
[2022-10-23 18:22] VITALS: BP 128/87; PULSE 105; TEMP 98.4
== END 2022-10-23 18:28 | disposition home or self-care (01) ==
LOC: JERFT 14:01
DX: O9A.212 Injury, poisoning and certain other consequences of external causes complicating pregnancy, second trimester (principal); S93.401A Sprain of unspecified ligament of right ankle, initial encounter; Z3A.19 19 weeks gestation of pregnancy; W10.8XXA Fall (on) (from) other stairs and steps, initial encounter
CPT/HCPCS: 73610-TC-LT-FY; 73610-TC-RT-FY; 73630-TC-RT-FY; 76815-TC; 99284-25

== ENCOUNTER 2023-03-30 00:40 | Inpatient (IN) | payer OTHER ==
[2023-03-30] MEDS: ELECTROLYTE-148 SOLN 1,000 ML IV ONE (02:30)
[2023-03-30 02:37] LABS: BASO % 1.3 % (0-2.0); EOS % 0.3 % (0-4.5); HEMATOCRIT 35.3 % (32.4-45.2); HEMOGLOBIN 12.5 GM/dL (10.7-15.3); LYMPH % 23.6 % (8-40); MCH 28.7 pg (25.7-33.7); MCHC 35.3 g/dl (32.0-36.0); MEAN CELL VOLUME 81.4 fl (80-96); MEAN PLT VOLUME 9.4 fl (7.5-11.1); MONO % 4.7 % (3.8-10.2); NEUT % 70.1 % (42.8-82.8); PLATELET COUNT 250 10^3/uL (134-434); RBC 4.34 M/mm3 (3.60-5.2); RDW 13.6 % (11.6-15.6); WHITE BLOOD COUNT 9.2 K/mm3 (4.0-10.0)
[2023-03-30 02:44] LABS: PROTHROMBIN TIME (PATIENT) 11.6 SEC (9.7-13.0)
[2023-03-30 02:47] LABS: ACTIVATED PTT 25.1 SECONDS (25.2-36.5)
[2023-03-30 03:01] LABS: POTASSIUM 3.6 mmol/L (3.5-5.1)
[2023-03-30 03:03] LABS: BLOOD UREA NITROGEN 11.5 mg/dL (7-18)
[2023-03-30 03:06] LABS: CREATININE 0.6 mg/dL (0.55-1.3)
[2023-03-30] MEDS: CITRIC ACID/SODIUM CITRATE 30 ML UNIT-DOSE CUP PO ONE (05:00)
[2023-03-30] MEDS ORDERED: BENZOCAINE 20% 57 GM BOTTLE TP PRN (05:32)
[2023-03-30] MEDS ORDERED: WITCH HAZEL 50% (TUCKS) 40 PAD/JAR PAD TP PRN (05:32)
[2023-03-30] MEDS ORDERED: METHYLERGONOVINE MALEATE 0.2 MG/1 ML AMP IM PRN (05:32)
[2023-03-30] MEDS ORDERED: ONDANSETRON 4 MG/2 ML VIAL IVPUSH PRN (05:33)
[2023-03-30 06:04] VITALS: BMI 43.1
[2023-03-30] MEDS ORDERED: morphine SULFATE/PF 1 MG/2 ML (2cc Syringe - QUVA) ONE (06:19)
[2023-03-30] MEDS ORDERED: FENTANYL CITRATE/PF 50 MCG/ML VIAL ONE (06:19)
[2023-03-30] MEDS ORDERED: PHENYLEPHRINE HCL 10 MG/1 ML SINGLE DOSE VIAL ONE (06:20)
[2023-03-30] MEDS ORDERED: OXYTOCIN 10 UNITS/ML VIAL ONE (06:20)
[2023-03-30 08:05] LABS: CORD HCO3 25.7 mmHg (20-29); CORD PCO2 56.4 mmHg (30-78); CORD pH 7.277 (7.14-7.44)
[2023-03-30 08:06] LABS: CORD HCO3 26.7 mmHg (20-29); CORD PCO2 76.1 mmHg (30-78); CORD pH 7.163 (7.14-7.44)
[2023-03-30] MEDS: OXYTOCIN 20 UNITS in 0.9% NS 20 UNIT/1,000 ML INFUS.BAG IV SCH (08:43)
[2023-03-30] MEDS ORDERED: OXYTOCIN 20 UNITS in 0.9% NS 20 UNIT/1,000 ML INFUS.BAG IV ONE (09:11)
[2023-03-30] MEDS: IBUPROFEN 800 MG/8 ML IJ IVPB PRN (09:55)
[2023-03-30] MEDS: PRENATAL VITAMINS W/ FOLIC ACID TABLET (FP) PO SCH (10:01)
[2023-03-30] MEDS: FERROUS SO4 325 MG TABLET (FP) PO SCH (10:01)
[2023-03-30] MEDS ORDERED: oxyCODONE HCL 5 MG TABLET PO PRN ×2 (17:32)
[2023-03-31] MEDS: ACETAMINOPHEN 325 MG TABLET (FP) PO PRN (01:56)
[2023-03-31] MEDS: IBUPROFEN 600 MG TABLET (FP) PO PRN (03:34)
[2023-03-31] MEDS ORDERED: BISACODYL 10 MG SUPP.RECT RC PRN (05:32)
[2023-03-31 08:11] LABS: BASO % 0.9 % (0-2.0); EOS % 0.8 % (0-4.5); HEMOGLOBIN 10.9 GM/dL (10.7-15.3); LYMPH % 29.3 % (8-40); MCH 28.3 pg (25.7-33.7); MCHC 34.1 g/dl (32.0-36.0); MEAN CELL VOLUME 83.1 fl (80-96); MEAN PLT VOLUME 9.3 fl (7.5-11.1); MONO % 6.7 % (3.8-10.2); NEUT % 62.3 % (42.8-82.8); PLATELET COUNT 224 10^3/uL (134-434); RBC 3.85 M/mm3 (3.60-5.2); RDW 13.8 % (11.6-15.6); WHITE BLOOD COUNT 7.6 K/mm3 (4.0-10.0)
[2023-03-31] MEDS: SIMETHICONE 80 MG TAB.CHEW (FP) PO PRN (13:20)
[2023-03-31] MEDS: SENNOSIDES/DOCUSATE COMBO (SENNA PLUS) TABLET (UD) PO PRN (21:11)
[2023-04-01 21:14] VITALS: RESP 18
[2023-04-02 08:30] LABS: BASO % 0.5 % (0-2.0); EOS % 1.2 % (0-4.5); HEMATOCRIT 31.7 % (32.4-45.2); HEMOGLOBIN 10.5 GM/dL (10.7-15.3); LYMPH % 28.2 % (8-40); MCH 27.6 pg (25.7-33.7); MEAN CELL VOLUME 83.5 fl (80-96); MEAN PLT VOLUME 9.6 fl (7.5-11.1); NEUT % 64.1 % (42.8-82.8); PLATELET COUNT 279 10^3/uL (134-434); RDW 13.6 % (11.6-15.6); WHITE BLOOD COUNT 6.9 K/mm3 (4.0-10.0)
[2023-04-02] MEDS: diphenhydrAMINE HCL 25 MG CAPSULE (FP) PO PRN (12:33)
[2023-04-02] MEDS: guaiFENesin 200 MG/10 ML 10 ML UNIT-DOSE CUPS PO PRN (12:34)
[2023-04-03 13:05] LABS: BASO % 0.4 % (0-2.0); EOS % 2.2 % (0-4.5); HEMATOCRIT 33.7 % (32.4-45.2); LYMPH % 42.2 % (8-40); MCH 27.3 pg (25.7-33.7); MCHC 32.6 g/dl (32.0-36.0); MEAN CELL VOLUME 83.7 fl (80-96); MEAN PLT VOLUME 8.8 fl (7.5-11.1); MONO % 6.7 % (3.8-10.2); NEUT % 48.5 % (42.8-82.8); PLATELET COUNT 320 10^3/uL (134-434); RBC 4.02 M/mm3 (3.60-5.2); RDW 14.2 % (11.6-15.6); WHITE BLOOD COUNT 5.7 K/mm3 (4.0-10.0)
[2023-04-04 10:58] VITALS: BP 119/86; PULSE 94; TEMP 98
== END 2023-04-04 11:00 | disposition home or self-care (01) | DRG 540 ==
LOC: JDEL 00:40 → JLDR 04:30 → J3W 09:26
PROVIDERS: ADMIT Obstetrics & Gynecology; ATTEND Obstetrics & Gynecology
PROC: 10D00Z1 Extraction of Products of Conception, Low, Open Approach (ICD-10-PCS; principal; 2023-03-30)
DX: O34.211 Maternal care for low transverse scar from previous cesarean delivery (principal); O26.873 Cervical shortening, third trimester; O99.03 Anemia complicating the puerperium; D64.9 Anemia, unspecified; R05.9 Cough, unspecified; Z3A.39 39 weeks gestation of pregnancy; Z37.0 Single live birth
CPT/HCPCS: 36415; 36600; 80048; 82803; 85025; 85610; 85730; 86780; 86850; 86900; 86901; 88307-TC